=== PATIENT | female | born 1955 | race Caucasian/White ===

== ENCOUNTER 2018-10-31 16:36 | Emergency (ER) | payer MEDICAID, MEDICARE ==
[~2018-10-31] VITALS: Ht 162.6 cm; Wt 75.0 kg
[~2018-10-31 16:36] MED LIST: CLIN300C85 PO; DIPH-423 PO; ONDA8TAB9 PO
[2018-10-31 16:41] VITALS: BP 150/74
== END 2018-10-31 18:27 | disposition left against medical advice (07) ==
LOC: ER 16:37
DX: M79.642 Pain in left hand (principal); Z53.21 Procedure and treatment not carried out due to patient leaving prior to being seen by health care provider

== ENCOUNTER → 2024-04-17 | Emergency (ER) | payer MEDICARE ==
[~2024-04-17] VITALS: Ht 162.6 cm; Wt 63.6 kg
[~2024-04-17] MED LIST changes: +CEPH-585 PO; +CLIN-97 PO; -CLIN300C85 PO
[2024-04-17 17:13] VITALS: BP 132/78; PULSE 78; RESP 18; TEMP 98.1; O2SAT 97
== END | disposition home or self-care (01) ==
LOC: ER 16:38
DX: S60.352A Superficial foreign body of left thumb, initial encounter (principal); Z88.0 Allergy status to penicillin; Z88.2 Allergy status to sulfonamides; Z79.2 Long term (current) use of antibiotics; X58.XXXA Exposure to other specified factors, initial encounter; Y93.89 Activity, other specified; Y92.89 Other specified places as the place of occurrence of the external cause; Y99.8 Other external cause status
CPT/HCPCS: 99283; A6446; A6449

== ENCOUNTER 2025-03-04 14:22 | Emergency (ER) | payer MEDICARE ==
[~2025-03-04] VITALS: Ht 162.6 cm; Wt 56.2 kg
[~2025-03-04 14:22] MED LIST changes: -CEPH-585 PO
[2025-03-04 14:24] VITALS: TEMP 98.2
--- NOTE | 2025-03-04 14:33 | Physician Documentation ---
History of Present Illness ~ Chief Complaint: Shortness of Breath Stated Complaint: DIZZINESS Time Seen by MD: 15:27 OK to notify your PCP?: Yes Primary Medical Doctor: None Source: patient Mode of Arrival: POV Exam Limitations: no limitations HPI 69-year-old female presents with shortness of breath and dizziness. She states that she had a upper respiratory infection a couple of weeks ago. Denies any productive cough. She denies any cardiac history. The patient was sent here from [facility] for evaluation dizziness and lightheadedness. Providor there stated the patient had crackles in the mid right lower lobe. Patient's primary concern is that approximately 3-[address] Etienne previously told her that her left carotid had decreased blood flow. She feels that weakness shortness of breath and dizziness could be attributing factors to this. Medication Reconciliation Allergies: Coded Allergies: Penicillins (Verified Allergy, Unknown, 04/17/24) Sulfa (Sulfonamide Antibiotics) (Verified Allergy, Unknown, 04/17/24) Scheduled Clindamycin HCL* (Clindamycin HCL*), 1 CAP PO Q6H Scheduled PRN Diphenhydramine Hcl (Benadryl), 25 MG PO Q6H PRN for allergic reaction Ondansetron (Zofran Odt), 8 MG PO TID PRN PRN for nausea/vomiting Past Medical History Past Medical History: No Pertinent History Past Surgical History: no surgical history Alcohol Use: None Drug Use: none Lives with: Family Lives In: Home Review of Systems All Other Systems at this time: Reviewed and Negative Physical Exam Vital Signs: RN Vital Signs have been reviewed: Yes, Temperature: 98.2, Source: Temporal, Heart Rate: 77, Respiratory Rate: 16, BP: 159/83, Pulse Oximetry: 100, Weight: 56.200 Pulse Oximetry Reflects: adequate oxygenation Physical Exam General: Alert, no distress. Respiratory: No respiratory distress, equal chest rise and fall. clear lung sounds throughout. Chest: No accessory muscle use. Cardiovascular: Regular rate and rhythm. Gastrointestinal: Nondistended. Neurologic: Oriented x4. Psychiatric: Normal mood and affect. Skin: Normal color, warm and dry. Progress Results/Orders Results/Orders Orders - FAZAL HERNANDEZ NP Vl Carotid (03/04/25 ) Completed Orders - FAZAL HERNANDEZ NP Ua W/Microscopic, Cult If Ind (03/04/25 13:27) Vital Signs 03/04/25 03/04/25 03/04/25 03/04/25 14:24 15:41 15:41 16:48 Temp 98.2 Pulse 77 67 Resp 16 18 18 B/P (MAP) 159/83 134/56 (82) Pulse Ox 100 98 O2 Delivery Room Air* O2 Flow Rate 0 FiO2 N/A Laboratory Tests Test 03/04/25 13:27 03/04/25 14:35 03/04/25 16:32 Urine Specimen Description Cln catch midstream Urine Color Straw Urine Clarity Clear Urine pH 6.0 Urine Specific [place] <=1.005 Urine Protein Negative Urine Glucose (UA) Negative Urine Ketones Negative Urine Occult Blood Trace-intact Urine Nitrite Negative Urine Bilirubin Negative Urine Urobilinogen 0.2 Urine Leukocyte Esterase Negative Urine RBC 0-2 Urine WBC 0-4 Urine Squamous Epithelial Cells None seen Urine Bacteria None seen Urine Mucus None seen Urine Culture Indicated Not ind Volume Urine Centrifuged 10 ml Urine Comment White Blood Count 9.2 Red Blood Count 4.82 Hemoglobin 14.5 Hematocrit 43.1 Mean Corpuscular Volume 89.3 Mean Corpuscular Hemoglobin 30.1 Mean Corpuscular Hemoglobin Concent 33.7 Red Cell Distribution Width 13.5 Platelet Count 280 Mean Platelet Volume 8.1 Neutrophils (%) (Auto) 69.3 Lymphocytes (%) (Auto) 21.9 Monocytes (%) (Auto) 7.1 Eosinophils (%) (Auto) 0.9 Basophils (%) (Auto) 0.8 Neutrophils # (Auto) 6.4 Lymphocytes # (Auto) 2.0 Monocytes # (Auto) 0.7 Eosinophils # (Auto) 0.1 Basophils # (Auto) 0.1 CBC Comment Sodium Level 136 Potassium Level 3.8 Chloride Level 103 Carbon Dioxide Level 26.7 Anion Gap 6 L Blood Urea Nitrogen 14 Creatinine 0.75 Estimated GFR/1.73 m2 76 BUN/Creatinine Ratio 18.7 Glucose Level 108 H Calcium Level 9.8 Troponin I High Sensitivity 10 Pro-B-Type Natriuretic Peptide 94 Albumin 4.1 Chemistry Comments Medical Decision Making Findings Patient's laboratory values very unremarkable lung with her x-ray and EKG which showed normal sinus rhythm without any axis deviation and no ST elevation. 70 beats per minute Patient's history of reported decreased blood flow in the left carotid I felt that it was imperative to have this evaluated. Vascular ultrasound indicated that there was good flow in both carotids. He would make note of a tortuous carotid on the left side. I did offer the patient hospital admission for further vascular/cardiology evaluation, however she declined. I do feel this is an appropriate decision she can follow up in the outpatient setting. Differential Dx:Considerations: Include: anxiety, asthma, bronchitis, cardiogenic shock, CHF, COPD, dysrhythmia, hypertension, accelerated, hypertension, essential, hypertension, malignant, hyperventilation, hyponatremia, myocardial infarction, panic attack, pneumonia, pneumonitis, pneumothorax, PSVT, pulmonary embolism, respiratory distress, respiratory failure, sinusitis, upper resp. infection, other Departure Disposition: HOME / SELF CARE / HOMELESS Impression: Primary Impression: Weakness Additional Impression: Dizziness Condition: Improved Discharge Instructions: Upper Respiratory Infection, Adult Additional Instructions: As discussed your labs, EKG, x-ray and ultrasound were all very reassuring. This means I believe you are a safe discharge. Recommend following up with your primary care for further evaluation Referrals: NO PRIMARY CARE PROVIDER (PCP) Additional Comment Medical Screen Exam This patient recieved a medical screening examination. After reviewing the individual's medical complaints with presenting symptoms and performing an appropriate physical examination, it was determined that no immediate life- threatening emergency medical condition is present. This individual is also not a women having contractions. Signature Scribe Signature: u Attestation: Scribed for Fazal Hernandez Np by Fazal Claudio NP . 03/04/25 16:41 DARIUS CARABALLO Mar 04, 2025 14:33 FAZAL HERNANDEZ NP Mar 04, 2025 16:16
--- NOTE | 2025-03-04 14:36 | ELECTROCARDIOGRAPH REPORT ---
[facility] Test Date: 2025-03-04 Test Time: 14:35:46 Pat Name: INOCENTE JARA Department: [facility] Patient ID: [id number] Room: Gender: F Nuclear Pharmacist: : [id number] Requested By: PHIL VICK Order Number: [id number] Reading MD: Measurements Intervals [place] Rate: 69 P: 51 AR: 121 QRS: 56 QRSD: 105 T: 60 QT: 414 QTc: 444 Interpretive Statements Sinus rhythm Please click the below link to view image of tracing.
[2025-03-04 14:53] LABS: BASOPHILS # (AUTO) 0.1 X10'3 (0-0.2); BASOPHILS % (AUTO) 0.8 % (0-1); EOSINOPHILS # (AUTO) 0.1 X10'3 (0-0.9); EOSINOPHILS % (AUTO) 0.9 % (0-6); HEMATOCRIT 43.1 % (35.0-45.0); HEMOGLOBIN 14.5 g/dl (12.0-16.0); LYMPHOCYTES % (AUTO) 21.9 % (21-51); MEAN CORPUSCULAR HEMOGLOBIN 30.1 PG (27.0-31.0); MEAN CORPUSCULAR HGB CONC 33.7 g/dL (33.0-36.5); MEAN CORPUSCULAR VOLUME 89.3 FL (78-98); MEAN PLATELET VOLUME 8.1 FL (7.4-10.4); MONOCYTES # (AUTO) 0.7 X10'3 (0-0.9); MONOCYTES % (AUTO) 7.1 % (2-12); NEUTROPHILS # (AUTO) 6.4 X10'3 (1.8-7.7); NEUTROPHILS % (AUTO) 69.3 % (42-75); PLATELET COUNT 280 X10'3 (140-440); RED BLOOD COUNT 4.82 X10'6 (4.20-5.60); RED CELL DISTRIBUTION WIDTH 13.5 % (11.5-14.5); WHITE BLOOD COUNT 9.2 X10'3 (4.5-11.0)
--- NOTE | 2025-03-04 14:59 | RADIOLOGY REPORT ---
EXAM: DI CHEST,SINGLE VIEW Indication: CP Technique: Single frontal view of the chest was obtained Comparison: None FINDINGS: Lines and Tubes: None Lungs: No focal consolidation. Pleura: No effusion. No pneumothorax. Cardiomediastinal contours: Unremarkable Bones: No acute osseous abnormality. IMPRESSION: No acute cardiopulmonary disease.
[2025-03-04 15:07] LABS: ALBUMIN 4.1 G/DL (3.4-5.0); ANION GAP 6 (8-16); BLOOD UREA NITROGEN 14 MG/DL (7-18); BUN/CREATININE RATIO 18.7 (10.0-20.0); CALCIUM 9.8 MG/DL (8.5-10.1); CHLORIDE 103 MMOL/L (99-107); CREATININE 0.75 MG/DL (0.40-0.90); GLUCOSE 108 MG/DL (70-104); POTASSIUM 3.8 MMOL/L (3.5-5.1); SODIUM 136 MMOL/L (135-145); TOTAL CARBON DIOXIDE 26.7 MMOL/L (24-32); eCRCL 59 ML/MIN; eGFR 76 ML/MIN
[2025-03-04 15:59] LABS: PRO BRAIN NATRIURETIC PEPTIDE 94 PG/ML (0-125)
[2025-03-04 16:49] LABS: BILIRUBIN,URINE NEGATIVE (Neg); CLARITY,URINE CLEAR (Clear); COLOR,URINE STRAW (Yellow); GLUCOSE, URINE NEGATIVE (Neg); KETONES,URINE NEGATIVE (Neg); LEUKOCYTE ESTERASE ,URINE NEGATIVE (Neg); NITRITES, URINE NEGATIVE (Neg); OCCULT BLOOD,URINE TRACE-INTACT (Neg); PROTEIN,URINE NEGATIVE (Neg); UROBILINOGEN,URINE 0.2 E.U/dL (0.2-1.0)
[2025-03-04 16:52] LABS: UA COLLECTION TYPE CLN CATCH MIDSTREAM
[2025-03-04 17:02] LABS: BACTERIA,URINE NONE SEEN /HPF (Neg); MUCUS STRANDS NONE SEEN /LPF (Neg); RBC,URINE 0-2 /HPF (0-2); SQUAMOUS EPITHELIAL CELL,UR NONE SEEN /LPF (FEW); WBC,URINE 0-4 /HPF (0-4)
[2025-03-04 17:22] VITALS: BP 130/65; PULSE 69; RESP 16; O2SAT 97
--- NOTE | 2025-03-04 19:20 | VASCULAR REPORT ---
Carotid Duplex Date: 03/04/2025 04:36 PM Clinical History: Dizziness Comparison: None Technique: Duplex Doppler evaluation of the extracranial carotid and vertebral arteries including col or Doppler and spectral/pulsed waveform analysis was performed. Findings: RIGHT SIDE: The peak systolic velocities are 84 cm/s in the distal CCA and 108 cm/s in the proximal ICA.The ICA/C CA ratio is less than 2. The external carotid artery is patent with peak systolic velocity of 65 cm/s proximally. There is appropriate antegrade flow in the right vertebral artery. LEFT SIDE: The peak systolic velocities are 81 cm/s in the distal CCA and 102 cm/s in the proximal ICA.. The ICA /CCA ratio is less than 2. The external carotid artery is patent with peak systolic velocity of 62 cm/s proximally. There is appropriate antegrade flow in the left vertebral artery. IMPRESSION: No hemodynamically significant stenosis noted in the right carotid system. No hemodynamically significant stenosis noted in the left carotid system. Reference: Radiology 2003; 229:340-346
== END 2025-03-04 17:24 | disposition home or self-care (01) ==
LOC: ER 14:23
DX: R53.1 Weakness (principal); R42 Dizziness and giddiness; R06.02 Shortness of breath; Z88.0 Allergy status to penicillin; Z88.2 Allergy status to sulfonamides
CPT/HCPCS: 36415; 71045; 80048; 81001; 83880; 84484; 85025; 93005; 93880; 99285